=== PATIENT | female | born 1985 | race Hispanic/Latino ===

== ENCOUNTER 2019-05-30 18:30 | Emergency (ER) | payer BC, MEDICAID ==
[2019-05-30 18:52] LABS: Bacteria/HPF 2+ HPF (None Seen); Bilirubin Negative (Negative); Blood, Urine Negative (Negative); Clarity Turbid (Clear); Glucose, Urine (Dipstick) Normal (Negative); Leukocyte 250 Leu/uL (Negative); Nitrite Negative (Negative); Pregnancy Test - Urine (BHCG) POSITIVE (Negative); Pregu Control Background? CLEAR/WHITE (CLR/WHITE); Pregu Control Bar Appear? YES (CONTROL BAR); Protein, Urine (Dipstick) Negative (Neg-Trace); RBC/HPF 0-3 HPF (0-3); Specific Gravity 1.016 (1.002-1.036); Urobilinogen Normal mg/dL (Less than 2)
[2019-05-30] MEDS ORDERED: diphenhydrAMINE 50 MG/ML VIAL ONE (19:06)
[2019-05-30] MEDS ORDERED: Metoclopramide HCl 10 MG/2 ML VIAL ONE (19:06)
[2019-05-30 19:24] LABS: #Eosinphils 0.2 thou/uL (0.0-0.7); #Lymphocytes 2.7 thou/uL (1.20-3.40); #Monocytes 0.7 thou/uL (0.11-0.59); #Neutrophils 4.7 thou/uL (1.40-6.50); %Basophils 0.4 % (0.0-1.0); %Eosinophils 1.9 % (0.0-10.0); %Lymphocytes 32.6 % (21.0-51.0); %Monocytes 8.1 % (0.0-10.0); %Neutrophils 57.1 % (42.0-75.0); Hemoglobin 12.1 g/dL (12.0-16.0); Mean Corpuscular HGB CONC 34.1 g/dL (32.0-36.0); Mean Corpuscular Hemoglobin 31.2 pg (27.0-31.0); Mean Corpuscular Volume 91.6 fL (78.0-98.0); Mean Platelet Volume 8.8 fL (7.4-10.4); Platelet Count 226 thou/uL (130-400); RBC Distribution Width 12.8 % (11.5-14.5); Red Blood Cell (RBC) Count 3.88 mill/uL (4.20-5.40); White Blood Cell (WBC) Count 8.2 thou/uL (4.8-10.8)
--- NOTE | 2019-05-30 20:20 | ULT ---
Pelvic ultrasound: 05/30/2019 COMPARISON: None HISTORY: Headache and dizziness TECHNIQUE: Multiplanar grayscale sonographic imaging of the pelvis obtained with transabdominal and e ndovaginal imaging. Ovaries are assessed with color flow/spectral analysis/Doppler interrogation FINDINGS: The uterus measures 12.1 x 7.0 x 7.3 cm. The left ovary measures 3.3 x 4.4 x 2.7 cm and the right ovary is not well visualized. Left ovary demonstrates normal blood flow. Small left ovarian cyst noted measuring 1.9 cm. There is a hypoechoic area within the region of the uterus suggesting a small gestational sac. There appears to be a pole with a heart rate of 139 bpm. Trace free fluid is noted in the pelvic cul-de-sac. [address]-rump length is 7 mm, correlating with a 6 week 3 day gestation. Gestational sac diameter is 1.4 cm, correlating with a 6 week 2 day gestation. Average age based on ultrasound is 6 weeks 3 days. Estimated date of delivery is 01/20/2020 IMPRESSION: Intrauterine gestation as detailed above. Clinical age is 10 weeks 4 days but age based o n ultrasound is 6 weeks 3 days. Correlation with quantitative beta-hCG advised.
[2019-05-30 20:55] LABS: ALT (SGPT) 15 U/L (8-55); AST (SGOT) 15 U/L (5-34); Albumin 3.8 g/dL (3.5-5.0); Alkaline Phosphatase 49 U/L (40-110); Anion Gap 14 mmol/L (10-20); BUN (Urea Nitrogen) 14 mg/dL (7.0-18.7); Bilirubin, Total 0.3 mg/dL (0.2-1.2); Calc. Creatinine Clearance 0 mL/min (70-130); Calcium 8.9 mg/dL (7.8-10.44); Carbon Dioxide 16 mmol/L (22-29); Chloride 110 mmol/L (98-107); Estimated GFR-MDRD Greater than 90; Globulin 2.6 g/dL (2.4-3.5); Glucose 88 mg/dL (70-105); Protein, Total 6.4 g/dL (6.0-8.3); Sodium 136 mmol/L (136-145)
== END 2019-05-30 22:05 | disposition home or self-care (01) ==
LOC: ERS 18:30
DX: O99.89 Other specified diseases and conditions complicating pregnancy, childbirth and the puerperium (principal); R42 Dizziness and giddiness; O99.351 Diseases of the nervous system complicating pregnancy, first trimester; G43.909 Migraine, unspecified, not intractable, without status migrainosus; Z3A.01 Less than 8 weeks gestation of pregnancy
CPT/HCPCS: 36415; 76856; 80053; 81003; 81015; 81025; 84702; 85025; 86900; 86901; 87077; 87086; 87186; 93005; 96365; 96375; J1200; J2765

== ENCOUNTER 2019-10-23 01:27 | Emergency (ER) | payer BC, OTHER ==
[2019-10-23] MEDS ORDERED: Acetaminophen 500 MG TAB ONE (01:57)
== END 2019-10-23 03:13 | disposition home or self-care (01) ==
LOC: ERS 01:27
DX: O98.512 Other viral diseases complicating pregnancy, second trimester (principal); U07.1 COVID-19; O99.342 Other mental disorders complicating pregnancy, second trimester; F32.9 Major depressive disorder, single episode, unspecified; O99.282 Endocrine, nutritional and metabolic diseases complicating pregnancy, second trimester; E03.9 Hypothyroidism, unspecified; Z3A.27 27 weeks gestation of pregnancy